=== PATIENT | male | born 1965 | race Caucasian/White ===

== ENCOUNTER 2020-07-11 22:04 | Emergency (ER) | payer SELFPAY ==
--- NOTE | 2020-07-11 22:47 | EDM.PDOC ---
ED HPI GENERAL MEDICAL PROBLEM - General Chief Complaint: Upper Extremity Injury/Pain Stated Complaint: laceration to finger Time Seen by Provider: 07/11/20 22:15 Source of Information: Reports: Patient, Family, RN History Limitations: Reports: Other (intoxicated) - History of Present Illness INITIAL COMMENTS - FREE TEXT/NARRATIVE: Mr. Lowe is a 54 YOM with a history HTN. He came into the ED tonight after he fell on rocks while fishing. He was intoxicated slipped on rocks hit his forehead and lacerated his Rt index finger. He was holding a glass bottle when he fell. There is a 1cm abrasion on his forehead. Wound is clean and dry. He had no LOC. No MCKOY or fever. His index finger has a 1 cm wound medially, hemostasis was achieved while in the ED. Wound was a clean cut into the subq. tissue. Pallor distal finger. No erythema or infection noted. Full ROM. NV intact. Tdap was recent. Normal HRR. Lungs were CTA. Abd was soft and non tender. Patient is a heavy smoker. No other concerns. Onset: Today Onset Date: 07/11/20 Onset Time: 18:00 Duration: Hour(s):, Getting Worse Location: Reports: Head, Other (finger) Severity: Moderate Improves with: Reports: None Worsens with: Reports: None Associated Symptoms: Reports: No Other Symptoms - Related Data Allergies Allergy/AdvReac Type Severity Reaction Status Date / Time No Known Allergies Allergy Verified 07/11/20 22:31 Home Meds: Home Meds . [Unable to Verify Home Med List] 07/11/20 [History] Review of Systems - Review of Systems Review Of Systems: See Below Skin: Reports: Other (index finger Rt hand laceration medial) Neurological: Reports: Other (intoxicated) ED EXAM, GENERAL - Physical Exam Exam: See Below Exam Limited By: Intoxication General Appearance: Alert, WD/WN, No Apparent Distress Eye Exam: Bilateral Eye: PERRL Ears: Normal External Exam, Normal Canal, Hearing Grossly Normal, Normal TMs Nose: Normal Inspection, Normal Mucosa, No Blood Throat/Mouth: Normal Inspection, Normal Lips, Other (dental caries) Head: Normocephalic Neck: Normal Inspection, Supple, Non-Tender Respiratory/Chest: No Respiratory Distress, Lungs Clear, Normal Breath Sounds Cardiovascular: Normal Peripheral Pulses, Regular Rate, Rhythm GI/Abdominal: Normal Bowel Sounds, Soft, Non-Tender (Male) Exam: Deferred Rectal (Males) Exam: Deferred Back Exam: Normal Inspection, Full Range of Motion Extremities: Normal Inspection, Normal Range of Motion Neurological: Alert, Oriented, CN II-XII Intact, Other (Rt index finger full ROM, NV intact upon examination.) Psychiatric: Normal Affect, Normal Mood Skin Exam: Warm, Dry, No Rash, Pallor (Finger has decreased profusion distally. Patient is a smoker with that hand/finger. ), Other (laceration rt index finger 1cm medial, abrasion front forehead. ) Lymphatic: No Adenopathy ED TRAUMA EXTREMITY PROCEDURES - Laceration/Wound Repair Right Medial Distal Digit - 2nd (Index) Lac/Wound Length In cm: 1 Appearance: Subcutaneous, Linear Distal NVT: Neuro & Vascular Intact, No Tendon Injury Anesthetic Type: Local Local Anesthesia - Lidocaine (Xylocaine): 2% Plain Local Anesthetic Volume: 5cc Skin Prep: Chlorhexidine (Hibiciens) Exploration/Debridement/Repair: Wound Explored, No Foreign Material Found Closed With: Sutures Suture Size: 4-0 # of Sutures: 3 (1 steri strip) Suture Type: Nylon Course - Vital Signs Last Recorded V/S: Last Vital Signs Temp 36.4 C 07/11/20 22:04 Pulse 86 07/11/20 22:04 Resp 18 07/11/20 22:04 BP 136/80 07/11/20 22:04 Pulse Ox 99 07/11/20 22:04 - Orders/Labs/Meds Orders: Active Orders 24 hr Category Date Time Status Fingers Second Digit Rt F6 [CR] Stat Exams 07/11/20 22:51 Taken Head wo Cont [CT] Stat Exams 07/11/20 22:40 Taken Lidocaine 2% [Xylocaine-MPF 2%] Med 07/12/20 00:20 Once 5 ml INJECT ONETIME ONE Nitroglycerin [Nitro-Bid 2%] Med 07/12/20 00:23 Once 1 gm TOP ONETIME ONE Medication Orders Lidocaine (Lidocaine 2% 5 Ml Sdv) 5 ml INJECT ONETIME ONE Stop: 07/12/20 00:21 Meds: Medications Generic Name Dose Route Start Last Admin Trade Name Freq PRN Reason Stop Dose Admin Lidocaine 5 ml 07/12/20 00:20 Lidocaine 2% 5 Ml Sdv INJECT 07/12/20 00:21 ONETIME ONE Discontinued Medications Generic Name Dose Route Start Last Admin Trade Name Laina PRN Reason Stop Dose Admin Ceftriaxone Sodium 1 gm 07/12/20 00:22 Ceftriaxone 1 Gm Vial IM 07/12/20 00:23 ONETIME ONE Departure - Departure Time of Disposition: 23:45 Disposition: Home, Self-Care 01 Condition: Good Clinical Impression: Laceration Forehead abrasion Qualifiers: Encounter type: initial encounter Qualified Code(s): S00.81XA - Abrasion of other part of head, initial encounter - Discharge Information *PRESCRIPTION DRUG MONITORING PROGRAM REVIEWED*: Not Applicable *COPY OF PRESCRIPTION DRUG MONITORING REPORT IN PATIENT BERONICA: Not Applicable Instructions: Laceration Care, Adult, Wound Care, Adult Forms: ED Department Discharge Additional Instructions: Discharge home. Tylenol for pain. Keep wound clean, dried and covered for 5-7 days. Change dressing daily. Use Nitro paste daily, no more than 3 days. Sutures removed in 7-10 days. Return to clinic or ED for new or worsening symptoms and signs of infection. Sepsis Event Note (ED) - Evaluation Sepsis Screening Result: No Definite Risk - Focused Exam Vital Signs: Vital Signs Temp Pulse Resp BP Pulse Ox 07/11/20 22:04 36.4 C 86 18 136/80 99 - Problem List & Annotations (1) Laceration SNOMED Code(s): 126498292 Code(s): SVM1458 - Status: Acute Priority: Low Onset Date: ~07/11/20 (2) Forehead abrasion SNOMED Code(s): 045873625 Code(s): S00.81XA - ABRASION OF OTHER PART OF HEAD, INITIAL ENCOUNTER Status: Acute Qualifiers: Encounter type: initial encounter Qualified Code(s): S00.81XA - Abrasion of other part of head, initial encounter - My Orders Last 24 Hours: My Active Orders 07/11/20 22:40 Head wo Cont [CT] Stat 07/11/20 22:51 Fingers Second Digit Rt F6 [CR] Stat 07/12/20 00:20 Lidocaine 2% [Xylocaine-MPF 2%] 5 ml INJECT ONETIME ONE 07/12/20 00:23 Nitroglycerin [Nitro-Bid 2%] 1 gm TOP ONETIME ONE - Assessment/Plan Last 24 Hours: My Active Orders 07/11/20 22:40 Head wo Cont [CT] Stat 07/11/20 22:51 Fingers Second Digit Rt F6 [CR] Stat 07/12/20 00:20 Lidocaine 2% [Xylocaine-MPF 2%] 5 ml INJECT ONETIME ONE 07/12/20 00:23 Nitroglycerin [Nitro-Bid 2%] 1 gm TOP ONETIME ONE Assessment:: Abrasion forehead. Laceration 1 cm rt index finger. Plan: Discharge home. Tylenol for pain. Keep wound clean, dried and covered for 5-7 days. Change dressing daily. Use Nitro paste daily, no more than 3 days. Sutures removed in 7-10 days. Return to clinic or ED for new or worsening symptoms and signs of infection.
[2020-07-11] MEDS: Lidocaine 2% 5 ML SDV INJECT ONE (23:10)
[2020-07-11] MEDS: Nitroglycerin 2% Oint 30 GM Tube TOP ONE (23:30)
[2020-07-11] MEDS: cefTRIAXone 1 GM Vial IM ONE (23:35)
--- NOTE | 2020-07-12 10:24 | CT ---
DATE OF SERVICE: 07/11/20 CLINICAL DATA: fall contusion frontal bone UNENHANCED BRAIN CT: Multislice acquisition through the brain without IV contrast was performed. No priors. No masses or mass effect. No intracranial hemorrhage. No evidence of acute or subacute infarct. No fractures. There is a 14 mm hyperdense nodule in the scalp in the right parietal region consistent in appearance with a epidural inclusion cyst. No other significant findings. IMPRESSION: No acute intracranial abnormalities. [id number] [facility]
--- NOTE | 2020-07-12 10:27 | CR ---
DATE OF SERVICE: 07/11/20 CLINICAL DATA: laceration RIGHT 2ND DIGIT: There is soft tissue swelling throughout the finger. No acute fracture or dislocation. [id number] [facility]
== END 2020-07-11 23:43 | disposition home or self-care (01) ==
LOC: LB.ED 22:04
DX: S61.210A Laceration without foreign body of right index finger without damage to nail, initial encounter (principal); S00.81XA Abrasion of other part of head, initial encounter; I10 Essential (primary) hypertension; W22.8XXA Striking against or struck by other objects, initial encounter
CPT/HCPCS: 12001; 70450; 73140-F6; 96372; 99284-25; J0696